=== PATIENT | male | born 1940 | race Caucasian/White ===

== ENCOUNTER → 2018-02-16 | Outpatient (CLI) | payer MEDICARE ==
[~2018-02-16] MED LIST: ADULT LOW DOSE81 MG PO; HYDROCHLOROTHIA25 M2 PO; HYTRIN 2MG CAPSU2 MG PO; MOBIC15 MG PO; NEURONTIN 300300 M1 PO; NORVASC5 MG PO; PRINIVIL40 MG PO; VITAMIN D1000 UNI1 PO
--- NOTE | 2018-02-16 13:35 | 2DMMODE ---
[place] [address] 2 D/M-MODE ECHOCARDIOGRAM Name: ROSANA BIRMINGHAM Freddie Room: [facility]#: [id number] Admission: 02/16/18 Attend Phys: Braden Toledo MD Discharge: Date of : 36 Date of Service: 02/16/18 1335 Report #: [id number] THIS REPORT FOR: //name// APPROVED REPORT Study performed: 02/16/2018 12:30:49 EXAM: Comprehensive 2D, Doppler, and color-flow Echocardiogram Patient Location: Out-Patient Status: routine BSA: 2.15 HR: 85 bpm BP: 130/65 mmHg Other Information Study Quality: Good Indications Aortic Valve Disease 2D Dimensions IVSd: 13.67 (7-11mm) LVOT Diam: 21.74 (18-24mm) LVDd: 43.92 mm PWd: 9.46 (7-11mm) Ascending Ao: 32.04 (22-36mm) LVDs: 30.23 (25-40mm) Aortic Root: 26.26 mm Volumes Left Atrial Volume (Systole) LA ESV Index: 15.00 mL/m2 Aortic Valve AoV Peak Ayaan.: 2.68 m/s AO Peak Gr.: 28.79 mmHg LVOT Max P.08 mmHg AO Mean Gr.: 17.57 mmHg LVOT Mean P.43 mmHg LVOT Max V: 1.13 m/s AO V2 VTI: 48.61 cm LVOT Mean V: 0.72 m/s ERNIE (VTI): 1.67 cm2 LVOT V1 VTI: 21.89 cm Mitral Valve E/A Ratio: 0.74 MV Decel. Time: 285.93 ms MV E Max Ayaan.: 0.82 m/s MV PHT: 82.92 [place] [address] 2 D/M-MODE ECHOCARDIOGRAM Name: VINNIEROSANA Room: [facility]#: [id number] Admission: 02/16/18 Attend Phys: Braden Toledo MD Discharge: Date of : 36 Date of Service: 02/16/18 1335 Report #: [id number] MVA (PHT): 2.65 cm2 TDI E/Lateral E': 16.40 E/Medial E': 11.71 Medial E' Ayaan.: 0.07 m/s Lateral E' Ayaan.: 0.05 m/s Pulmonary Valve PV Peak Ayaan.: 1.33 m/s PV Peak Gr.: 7.07 mmHg Tricuspid Valve RAP Estimate: 5.00 mmHg TR Peak Gr.: 30.52 mmHg RVSP: 35.52 mmHg PA Pressure: 35.52 mmHg Left Ventricle The left ventricle is normal size. There is normal LV segmental wall motion. There is normal left ventricular wall thickness. Left ventricular systolic function is normal. The left ventricular ejection fraction is within the normal range. LVEF is 60%. Grade I - abnormal relaxation pattern. Right Ventricle The right ventricle is normal size. The right ventricular systolic function is normal. Atria The left atrium size is normal. The right atrium size is normal. Aortic Valve Mild aortic valve sclerosis. No aortic regurgitation is present. Mild aortic stenosis. Mitral Valve There is mild mitral annular calcification. There is no mitral valve regurgitation noted. No evidence of mitral valve stenosis. Tricuspid Valve The tricuspid valve is normal in structure. Mild tricuspid regurgitation. Pulmonic Valve The pulmonary valve is normal in structure. [place] [address] 2 D/M-MODE ECHOCARDIOGRAM Name: ROSANA BIRMINGHAM [id number] Admission: 02/16/18 Attend Phys: Braden Toledo MD Discharge: Date of : 36 Date of Service: 02/16/18 1335 Report #: [id number] Great Vessels The aortic root is normal in size. IVC is normal in size and collapses >50% with inspiration. Pericardium There is no pericardial effusion. <Conclusion> The left ventricle is normal size. There is normal left ventricular wall thickness. Left ventricular systolic function is normal. The left ventricular ejection fraction is within the normal range. LVEF is 60%. Grade I - abnormal relaxation pattern. The right ventricle is normal size. The left atrium size is normal. Mild aortic valve sclerosis. No aortic regurgitation is present. Mild aortic stenosis. There is mild mitral annular calcification. There is no mitral valve regurgitation noted. No evidence of mitral valve stenosis. The tricuspid valve is normal in structure. IVC is normal in size and collapses >50% with inspiration. There is no pericardial effusion. There is normal LV segmental wall motion. <ELECTRONICALLY SIGNED> By: Chema Mi MD, FACC 02/16/18 1335 1335 1335 Chema Mi MD, FACC /INF
== END ==
LOC: M.CRD 12:26
DX: I65.23 Occlusion and stenosis of bilateral carotid arteries (principal); I35.8 Other nonrheumatic aortic valve disorders; I35.0 Nonrheumatic aortic (valve) stenosis

== ENCOUNTER → 2019-04-28 | Outpatient (CLI) | payer MEDICARE ==
--- NOTE | 2019-04-28 14:53 | 2DMMODE ---
[place] [address] 2 D/M-MODE ECHOCARDIOGRAM Name: ROSANA BIRMINGHAM Freddie Room: [facility]#: [id number] Admission: 04/28/19 Attend Phys: Lola Jones Discharge: Date of : 36 Date of Service: 04/28/19 1452 Report #: [id number] THIS REPORT FOR: //name// APPROVED REPORT Study performed: 04/28/2019 13:27:24 EXAM: Comprehensive 2D, Doppler, and color-flow Echocardiogram Patient Location: Out-Patient BSA: 2.17 HR: 88 bpm BP: 130/60 mmHg Other Information Study Quality: Good Indications Aortic Valve Disease 2D Dimensions IVSd: 12.38 (7-11mm) LVOT Diam: 20.86 (18-24mm) LVDd: 47.15 mm PWd: 8.39 (7-11mm) Ascending Ao: 30.69 (22-36mm) LVDs: 30.81 (25-40mm) Aortic Root: 26.36 mm Volumes Left Atrial Volume (Systole) LA ESV Index: 16.40 mL/m2 Aortic Valve AoV Peak Ayaan.: 2.70 m/s AO Peak Gr.: 29.25 mmHg LVOT Max P.88 mmHg AO Mean Gr.: 17.55 mmHg LVOT Mean P.75 mmHg LVOT Max V: 0.85 m/s AO V2 VTI: 55.47 cm LVOT Mean V: 0.63 m/s ERNIE (VTI): 1.13 cm2 LVOT V1 VTI: 18.30 cm Mitral Valve E/A Ratio: 0.69 MV Decel. Time: 298.36 ms MV E Max Ayaan.: 0.69 m/s MV PHT: 86.52 ms MVA (PHT): 2.54 [place]2 [place] [address] 2 D/M-MODE ECHOCARDIOGRAM Name: ROSANA BIRMINGHAM Freddie Room: [facility]#: [id number] Admission: 04/28/19 Attend Phys: Lola Jones Discharge: Date of : 36 Date of Service: 04/28/19 1452 Report #: [id number] TDI E/Lateral E': 8.63 E/Medial E': 11.50 Medial E' Ayaan.: 0.06 m/s Lateral E' Ayaan.: 0.08 m/s Pulmonary Valve PV Peak Ayaan.: 1.35 m/s PV Peak Gr.: 7.26 mmHg Tricuspid Valve RAP Estimate: 5.00 mmHg TR Peak Gr.: 27.88 mmHg RVSP: 32.88 mmHg PA Pressure: 32.88 mmHg Left Ventricle The left ventricle is normal size. There is normal LV segmental wall motion. There is normal left ventricular wall thickness. Left ventricular systolic function is normal. The left ventricular ejection fraction is within the normal range. LVEF is 55-60%. Grade I - abnormal relaxation pattern. Right Ventricle The right ventricle is normal size. The right ventricular systolic function is normal. Atria The left atrium size is normal. The right atrium size is normal. Aortic Valve Aortic valve is mildly alcified. No aortic regurgitation is present. Mild aortic stenosis. Mitral Valve Mild mitral annular calcification. There is no mitral valve regurgitation noted. No evidence of mitral valve stenosis. Tricuspid Valve The tricuspid valve is normal in structure. Mild tricuspid regurgitation. Pulmonic Valve Pulmonic valve is not well visualized. Mild pulmonic regurgitation[place] [address] 2 D/M-MODE ECHOCARDIOGRAM Name: ROSANA BIRMINGHAM Room: [facility]#: [id number] Admission: 04/28/19 Attend Phys: Lola Jones Discharge: Date of : 36 Date of Service: 04/28/19 1452 Report #: [id number] The aortic root is normal in size. IVC is normal in size and collapses >50% with inspiration. Pericardium There is no pericardial effusion. <Conclusion> LVEF is 55-60%. Mild aortic stenosis. <ELECTRONICALLY SIGNED> By: Braden Toledo MD, FACC 04/28/19 1452 145 145 Braden Toledo MD, FAC /INF
== END ==
LOC: M.CRD 13:23
DX: I08.8 Other rheumatic multiple valve diseases (principal)

== ENCOUNTER → 2019-12-10 | Outpatient (CLI) | payer MEDICARE | LOC: M.CT 12-08 13:37 | PROVIDERS: ATTEND Nurse Practitioner Family | DX: M47.816 Spondylosis without myelopathy or radiculopathy, lumbar region (principal); M41.86 Other forms of scoliosis, lumbar region; M25.559 Pain in unspecified hip ==

== ENCOUNTER → 2020-07-10 | Outpatient (CLI) | payer OTHER ==
--- NOTE | 2020-07-10 15:15 | 2DMMODE ---
[place] [address] 2 D/M-MODE ECHOCARDIOGRAM Name: ROSANA BIRMINGHAM Room: [facility]#: [id number] Admission: 07/10/20 Attend Phys: Lola Jones Discharge: Date of : 36 Date of Service: 07/10/20 1515 Report #: [id number] THIS REPORT FOR: cc: Lola Wen,Chema Morales MD [facility] ~ APPROVED REPORT Study performed: 07/10/2020 13:38:54 EXAM: Comprehensive 2D, Doppler, and color-flow Echocardiogram Patient Location: Out-Patient BSA: 2.17 HR: 74 bpm BP: 120/60 mmHg Other Information Study Quality: Good Indications Aortic Valve Disease 2D Dimensions IVSd: 13.19 (7-11mm) LVOT Diam: 20.73 (18-24mm) LVDd: 47.97 mm PWd: 11.79 (7-11mm) Ascending Ao: 27.95 (22-36mm) LVDs: 32.06 (25-40mm) Aortic Root: 30.34 mm Volumes Left Atrial Volume (Systole) LA ESV Index: 20.70 mL/m2 Aortic Valve AoV Peak Ayaan.: 2.58 m/s AO Peak Gr.: 26.60 mmHg LVOT Max P.08 mmHg AO Mean Gr.: 15.68 mmHg LVOT Mean P.18 mmHg LVOT Max V: 0.72 m/s AO V2 VTI: 57.45 cm LVOT Mean V: 0.52 m/s ERNIE (VTI): 0.80 cm2 LVOT V1 VTI: 13.57 cm Mitral Valve MV Decel. Time: 309.83 [place] [address] 2 D/M-MODE ECHOCARDIOGRAM Name: VINNIEROSANA Room: [facility]#: [id number] Admission: 07/10/20 Attend Phys: Lola Jones Discharge: Date of : 36 Date of Service: 07/10/20 1515 Report #: [id number] MV E Max Ayaan.: 1.29 m/s MV PHT: 89.85 ms MVA (PHT): 2.45 cm2 TDI E/Lateral E': 18.43 E/Medial E': 21.50 Medial E' Ayaan.: 0.06 m/s Lateral E' Ayaan.: 0.07 m/s Pulmonary Valve PV Peak Ayaan.: 1.04 m/s PV Peak Gr.: 4.35 mmHg Left Ventricle The left ventricle is normal size. There is abnormal septal wall motion consistent with an IVCD of the left type There is normal left ventricular wall thickness. Left ventricular systolic function is normal. The left ventricular ejection fraction is within the normal range. LVEF is 50-55%. Grade I - abnormal relaxation pattern. Right Ventricle The right ventricle is normal size. The right ventricular systolic function is normal. Atria The left atrium size is normal. The right atrium size is normal. Aortic Valve Moderate aortic valve sclerosis. No aortic regurgitation is present. Mild aortic stenosis. Mitral Valve Moderate mitral annular calcification. There is no mitral valve regurgitation noted. No evidence of mitral valve stenosis. Tricuspid Valve The tricuspid valve is normal in structure. There is no tricuspid valve regurgitation noted. Pulmonic Valve The pulmonary valve is normal in structure. There is no pulmonic valvular regurgitation. Great Vessels The aortic root is normal in size. IVC is normal in size and collapses >50% [place] [address] 2 D/M-MODE ECHOCARDIOGRAM Name: ROSANA BIRMINGHAM Room: [facility]#: [id number] Admission: 07/10/20 Attend Phys: Lola Jones Discharge: Date of : 36 Date of Service: 07/10/20 1515 Report #: [id number] Pericardium There is no pericardial effusion. <Conclusion> The left ventricle is normal size. There is normal left ventricular wall thickness. Left ventricular systolic function is normal. The left ventricular ejection fraction is within the normal range. LVEF is 50-55%. Grade I - abnormal relaxation pattern. The right ventricle is normal size. The left atrium size is normal. Moderate aortic valve sclerosis. No aortic regurgitation is present. Mild aortic stenosis. Moderate mitral annular calcification. There is no mitral valve regurgitation noted. No evidence of mitral valve stenosis. The tricuspid valve is normal in structure. IVC is normal in size and collapses >50% with inspiration. There is no pericardial effusion. There is abnormal septal wall motion consistent with an IVCD of the left type <ELECTRONICALLY SIGNED> By: Chema Mi MD, [facility] 07/10/20 1515 1515 1515 Chema Mi MD, FACC /INF
== END ==
LOC: M.CRD 07-03 12:52 → M.RAD 12:05 → M.ULTRA 13:00 → M.CRD 14:00
PROVIDERS: ATTEND Nurse Practitioner Family
DX: I08.0 Rheumatic disorders of both mitral and aortic valves (principal); M79.669 Pain in unspecified lower leg

== ENCOUNTER → 2020-08-17 | Outpatient (CLI) | payer OTHER ==
--- NOTE | 2020-08-17 15:36 | CARDNUC ---
[place] [address] CARDIAC NUCLEAR IMAGING REPORT Name: ROSANA BIRMINGHAM Room: [facility]#: [id number] Admission: 08/17/20 Attend Phys: Lola Jones Discharge: Date of : 36 Date of Service: 08/17/20 1536 Report #: [id number] THIS REPORT FOR: cc: Lola Wen,Robert Jack MD [facility] ~ APPROVED REPORT Study performed: 08/17/2020 11:07:48 Exam: Nuclear Stress Test Indication: Dyspnea Patient Location: Out-Patient Stress Tech: Viola Cline Stress Nurse: Virgie Hightower RN NM Tech:JOHANNA Grant Ht: 5 ft 10 in Wt: 220 lbs BSA: 2.17 m2 BMI: 31.56 Medical History Medical History: HTN, Hyperlipidemia Medications: lisinopril, amlodipine Allergies: sulfa Cardiac Risk Factors: Age, HTN, Hyperlipidemia Exercise History: Sedentary Stress Test Details Stress Test: Pharmacologic stress testing performed using 0.4 mg of regadenoson per 5 mL given IV over 10 seconds. Reason for pharmacologic stress test: LBBB. HR Resting HR: 82 bpm Max Heart Rate (APMHR): 138 bpm Max HR Achieved: 97 bpm Target HR (85% APMHR): 117 bpm % of APMHR: 70 Recovery HR: 101 bpm BP Resting BP: 129/74 mmHg Max BP: 100/57 mmHg ECG Resting ECG: Sinus Rhythm, [place] [address] CARDIAC NUCLEAR IMAGING REPORT Name: ROSANA BIRMINGHAM Freddie Room: [facility]#: [id number] Admission: 08/17/20 Attend Phys: Lola Jones Discharge: Date of : 36 Date of Service: 08/17/20 1536 Report #: [id number] Stress ECG: Sinus Rhythm, LBBB Arrhythmia: None Recovery ECG: Sinus Rhythm, LBBB Recovery ST Change: None Recovery Arrhythmia: None Clinical Reason for Termination: Completed protocol The patient tolerated Lexiscan infusion without significant cardiac symptoms. Stress ECG Conclusion The baseline twelve-lead EKG shows sinus rhythm with left bundle branch block. EKGs obtained during and post Lexiscan infusion show a left bundle branch block with no significant ST segment or T wave changes when compared to baseline. There were no stress-induced arrhythmias. NM EXAM: Myocardial Perfusion REST/STRESS Imaging Protocol: Rest Tc-99m/Stress Tc-99m 1 day Resting Data Rest SPECT myocardial perfusion imaging was performed in supine position 30 minutes following the intravenous injection of 10.6 mCi of Tc-99m Sestamibi. Time of rest injection: 1005 Date: 08/17/2020 The images were gated to evaluate regional wall motion and calculate left ventricular ejection fraction. Administration Route: IV Pharmacologic Stress Pharmacologic stress test was performed by injecting Regadenoson 0.4 mg IV push followed by the intravenous injection of 34.4 mCi of Tc-99m Sestamibi. Time of stress injection: 1130 Date: 08/17/2020 Administration Route: IV Gated Stress SPECT was performed 40 minutes after stress injection. The images were gated to evaluate regional wall motion and calculate left ventricular ejection fraction. Stress only was performed in the Supine position. Study Quality Study: Good Artifact: [place] [address] CARDIAC NUCLEAR IMAGING REPORT Name: ROSANA BIRMINGHAM Freddie Room: [facility]#: [id number] Admission: 08/17/20 Attend Phys: Lola Jones Discharge: Date of : 36 Date of Service: 08/17/20 1536 Report #: [id number] Study Data At rest, the left ventricular ejection fraction was 61%.. Post stress, the left ventricular ejection was 50%.. TID = 1.01. Perfusion Perfusion images show multiple reversible defects. There is a small in size moderate intensity mid anterior wall reversible defect. There is a moderate to large in size moderate intensity reversible defect involving the basal to mid inferior wall. Wall Motion There is moderate global hypokinesis that is more pronounced in the mid to distal anterior wall of the inferior wall and apex. Nuclear Conclusion ECG Findings: non-diagnostic Clinical Findings: negative for ischemia Nuclear Findings: positive for ischemia Exercise Capacity: not assessed Left Ventricular Function: abnormal Risk Study: high Perfusion images suggest regions of ischemia involving the anterior as well as inferior wall. Gated study suggest global hypokinesis with focal wall motion abnormalities involving the inferior and anterior morataya. This is a high risk study. <Conclusion> The baseline twelve-lead EKG shows sinus rhythm with left bundle branch block. EKGs obtained during and post Lexiscan infusion show a left bundle branch block with no significant ST segment or T wave changes when compared to baseline. There were no stress-induced arrhythmias. <ELECTRONICALLY SIGNED> By: Robert Hernandez MD, FACC 08/17/20 1536 1536 1536 Robert Hernandez MD, FACC /INF
== END ==
LOC: M.NUC 07-27 12:55 → M.CRD 08-16 14:00 → M.NUC 08-16 15:00
PROVIDERS: ATTEND Nurse Practitioner Family
DX: I44.7 Left bundle-branch block, unspecified (principal); R06.09 Other forms of dyspnea; I10 Essential (primary) hypertension; E78.5 Hyperlipidemia, unspecified; Z79.899 Other long term (current) drug therapy; Z88.2 Allergy status to sulfonamides

== ENCOUNTER → 2020-08-28 | Outpatient (CLI) | payer OTHER ==
[~2020-08-28] VITALS: Ht 172.7 cm; Wt 97.5 kg
[~2020-08-28] MED LIST changes: +DEMADEX20 MG PO; +FLOMAX0.4 MG PO; +NEURONTIN 300M300 M2 PO; +SUPER THERAVIT1 EACH PO; +ULTRAM50 MG PO
[2020-08-28 09:29] VITALS: BP 148/70
[2020-08-28 09:35] LABS: HEMATOCRIT 42.3 % (42.0-52.0); HEMOGLOBIN 13.9 gm/dL (14.0-18.0); MCH 29.3 pg (26.0-34.0); MCHC 32.9 g/dL (28.0-37.0); MCV 89.2 fL (80.0-100.0); MPV 8.1 fl. (7.2-11.1); RBC 4.75 mil/uL (4.50-6.00); RDW-CV 13.3 % (10.5-14.5)
[2020-08-28 09:44] LABS: ANION GAP 8 mmol/L (7-16); BUN 23 mg/dL (7-18); CALCIUM 8.7 mg/dL (8.5-10.1); CHLORIDE 104 mmol/L (98-107); CO2 27 mmol/L (21-32); CREATININE 1.6 mg/dL (0.6-1.3); GLUCOSE 97 mg/dL (70-99); POTASSIUM 4.9 mmol/L (3.5-5.1); SODIUM 139 mmol/L (136-145)
[2020-08-28 09:47] LABS: APTT 25.5 Seconds (25.0-31.3); PROTIME 10.3 Seconds (9.20-11.50)
[2020-08-28 09:49] LABS: ALBUMIN 3.6 g/dL (3.4-5.0); ALKALINE PHOSPHATASE 93 U/L (46-116); CHOLESTEROL 166 mg/dL (<200); HDL CHOLESTEROL 38 mg/dL (>40); LDL CHOLESTEROL 109 mg/dL (<100); SGOT 13 U/L (15-37); SGPT 18 U/L (30-65); TC:HDL 4.4 Ratio (Not establshd); TOTAL BILIRUBIN 0.6 mg/dL (<0.1-1.0); TOTAL PROTEIN 7.2 g/dL (6.4-8.2); TRIGLYCERIDE 96 mg/dL (<150); VLDL 19 mg/dL (<40)
[2020-08-28 09:56] LABS: SERUM ASSESSMENT Clear
--- NOTE | 2020-08-28 11:25 | EKG ---
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
--- NOTE | 2020-08-28 11:26 | EKG ---
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 08/28/20 1125 Braden Toledo MD, [facility] /EPI
[2020-08-28 12:57] VITALS: BP 186/70
[2020-08-28 13:15] VITALS: BP 177/70
[2020-08-28 13:27] VITALS: BP 179/73
--- NOTE | 2020-08-28 19:37 | CARD ---
[address] [address] CARDIAC CATH REPORT Name: ROSANA BIRMINGHAM Room: [facility].#: [id number] Admission: 08/28/20 Attend Phys: Braden Toledo MD, F Discharge: Date of : 36 Report #: [id number] THIS REPORT FOR: cc: Lola Wen Angela Jo RNP Blick, David R. MD [facility] ~ APPROVED REPORT Study performed: 08/28/2020 10:59:03 Patient Details Patient Status: Out-Patient Room #: The patient is a 80 year-old male Event Personnel Braden Toledo Minilab Operator, Katty Vera RN RN, Steven Dominguez CULTURAL CENTRE MANAGER Monitor, Hailee Heart RTR Scrub, Papito Jarrett RTR Monitor Procedures Performed Left Heart Cath w/or w/o Coronaries [id number] [facility] Hemostasis with Hemoband Supravalvular Aortography [id number] Indication Abnormal ECG, Dyspnea, Positive stress test, Valvular heart disease Risk Factors Hypercholesterolemia, Hypertension Admission/Lab Medications/Medications given during procedure Heparin Unfract., Lidocaine Subcut 4 ml, Nitroglycerin IA 200 mcg, Verapamil IA 2.5 mg, Heparin IV 4800 units, Fentanyl IV 25 mcg, Verapamil IV 2.5 mg Procedure Narrative The patient was brought electively to the Cardiac Catheterization Laboratory and was prepped and draped in a sterile manner. The right wrist was infiltrated with 2% Lidocaine subcutaneous anesthesia. A Slender Glidesheath sheath was inserted into the right radial artery. Coronary angiography was performed using coronary diagnostic catheters. The right coronary system was accessed and visualized with a Diagnostic JR4 6Fr catheter. The left coronary system was accessed and visualized with a Diagnostic JL4 6Fr catheter[place] [address] CARDIAC CATH REPORT Name: ROSANA BIRMINGHAM Freddie Room: [facility]#: [id number] Admission: 08/28/20 Attend Phys: Braden Toledo MD, F Discharge: Date of : 36 Report #: [id number] was accessed and visualized with a Diagnostic MPA2 6Fr catheter. Left ventricular/Aortic Valve gradient assessed via catheter pullback. Left ventriculogram was performed in ROLLINS projection. An aortogram of the ascending aorta was performed. Closure device was deployed with a 6 Fr vascband. The patient tolerated the procedure well and there were no complications associated with the procedure. There was no hematoma. Aortic valve was crossed using a multipurpose catheter and a glide wire. Left ventriculography was performed using a hand injection through the multipurpose catheter. Intraoperative Conscious Sedation Sedation start time: 1131 Case end Time: 1232 Fentanyl 50 mcg Fluoro Time: 19.7 minutes Dose: DAP [id number] cGycm2 2221.31 mGy Contrast Type and Amount: Visipaque 100 ml Coronary Angiography The patient's coronary anatomy is right dominant. Diagnostic Cath Left Main 0% stenosis LAD 80% proximal stenosis just prior to the takeoff of the first diagonal branch Circumflex 0% stenosis Right Coronary 100% proximal occluded and filled distally by retrograde collaterals from the left coronary Left Ventriculography The left ventricular ejection fraction is estimated to be 40-45%. There is no mitral insufficiency. Global hypokinesis noted of the left ventricle. Trace aortic insufficiency noted on aortic root injection. Hemodynamics The aortic pressure is 132/76 mmHg with a mean of 89 mmHg. The left ventricular pressure is 161/65 mmHg with a mean of mmHg. The left ventricular end diastolic pressure is 22 mmHg. Pullback from the left ventricle to the aorta revealed a 40 mm gradient across the aortic valve. The mean aortic valve gradient is 29.10 mmHg. Conclusion 1. 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 Chronic [place] [address] CARDIAC CATH REPORT Name: ROSANA BIRMINGHAM Room: [facility]#: [id number] Admission: 08/28/20 Attend Phys: Braden Toledo MD, F Discharge: Date of : 36 Report #: [id number] 3. LVEF 40-45% 4. Moderate stenosis of the aortic vavle Recommendations Consider stenting of the proximal LAD if the patient has angina refractory to medical therapy. <ELECTRONICALLY SIGNED> By: Braden Toledo MD, FACC 08/28/201936 36 36Daadal Toledo MD, FAC /INF
== END | disposition home or self-care (01) ==
LOC: M.CL 08:39
PROVIDERS: ATTEND Internal Medicine Cardiovascular Disease
DX: R94.39 Abnormal result of other cardiovascular function study (principal); I25.10 Atherosclerotic heart disease of native coronary artery without angina pectoris; I25.82 Chronic total occlusion of coronary artery; R94.31 Abnormal electrocardiogram [ECG] [EKG]; I35.0 Nonrheumatic aortic (valve) stenosis; R06.00 Dyspnea, unspecified; I10 Essential (primary) hypertension; E78.00 Pure hypercholesterolemia, unspecified; Z98.890 Other specified postprocedural states; Z79.899 Other long term (current) drug therapy; Z87.891 Personal history of nicotine dependence; Z88.2 Allergy status to sulfonamides

== ENCOUNTER → 2020-10-18 | Outpatient (CLI) | payer OTHER | LOC: M.CT 10-17 15:00 | PROVIDERS: ATTEND Nurse Practitioner Family | DX: K57.90 Diverticulosis of intestine, part unspecified, without perforation or abscess without bleeding (principal); M47.816 Spondylosis without myelopathy or radiculopathy, lumbar region; R10.9 Unspecified abdominal pain ==